=== PATIENT | male | born 1995 | race Caucasian/White ===

== ENCOUNTER 2020-08-22 18:53 | Emergency (ER) | payer SELFPAY ==
[~2020-08-22] VITALS: Ht 177.8 cm; Wt 81.8 kg
[~2020-08-22 18:53] MED LIST: NAPROSYN500 MG OR
[2020-08-22] MEDS ORDERED: AMOXICILLIN875 MG PO (19:46)
[2020-08-22 19:55] VITALS: BP 129/64
== END 2020-08-22 19:55 | disposition home or self-care (01) | DRG 153 ==
LOC: ED 18:53
DX: J02.0 Streptococcal pharyngitis (principal); F17.210 Nicotine dependence, cigarettes, uncomplicated

== ENCOUNTER 2020-11-04 09:03 | Emergency (ER) | payer SELFPAY ==
[~2020-11-04] VITALS: Ht 177.8 cm; Wt 85.0 kg
[~2020-11-04 09:03] MED LIST changes: +AMOXICILLIN875 MG PO
[2020-11-04 10:04] LABS: HEMATOCRIT 44.6 % (39.0-50.0); HEMOGLOBIN 14.3 g/dl (14.0-18.0); IMMATURE GRANULOCYTES 0.3 % (0.0-5.0); MEAN CELL VOLUME 90.3 fL CALC (80.0-100.0); MEAN CORPUSCULAR HGB 28.9 pG CALC (26.0-32.0); MEAN CORPUSCULAR HGB CONC 32.1 g/dL CAL (32.0-36.0); NEUT# 10.08 thou/uL (1.82-7.42); RED BLOOD COUNT 4.94 mill/uL (4.70-6.10); RED CELL DISTRI WIDTH 12.7 % (11.5-15.5)
[2020-11-04 10:23] LABS: ALBUMIN 4.4 g/dL (3.2-5.0); ALKALINE PHOSPHATASE 84 u/l (38-126); ANION GAP 12 (6-22 (CALC)); BILIRUBIN, TOTAL 0.4 mg/dL (0.0-1.4); BUN 10 mg/dL (9-20); BUN/CREATININE RATIO 13 (12-20 (CALC)); CARBON DIOXIDE 27 mmol/l (22-30); CHLORIDE 102 mmol/l (95-108); CREATININE 0.8 mg/dL (0.7-1.3); GFR > 60 ML/MIN (>=60 (CALC)); GFR FOR AFR.AMER. > 60 ML/MIN (>=60 (CALC)); POTASSIUM 4.2 mmol/l (3.5-5.1); SGOT/AST 24 u/l (17-59); SODIUM 137 mmol/l (137-146); TOTAL PROTEIN 7.5 g/dL (6.3-8.2)
[2020-11-04 12:10] VITALS: BP 118/58
== END 2020-11-04 12:10 | disposition left against medical advice (07) | DRG 603 ==
LOC: ED 09:03
DX: L03.012 Cellulitis of left finger (principal); F17.210 Nicotine dependence, cigarettes, uncomplicated

== ENCOUNTER 2021-10-22 06:56 | Emergency (ER) | payer OTHER ==
[~2021-10-22] VITALS: Ht 177.8 cm; Wt 72.7 kg
[2021-10-22] MEDS ORDERED: KEFLEX500 MG PO (08:44)
[2021-10-22 08:57] VITALS: BP 131/74
== END 2021-10-22 09:00 | DRG 605 ==
LOC: ED 06:56
PROC: 0HQ1XZZ Repair Face Skin, External Approach (ICD-10-PCS; principal; 2021-10-22)
DX: S01.81XA Laceration without foreign body of other part of head, initial encounter (principal); Y04.2XXA Assault by strike against or bumped into by another person, initial encounter; Y92.149 Unspecified place in prison as the place of occurrence of the external cause

== ENCOUNTER 2022-01-16 00:02 | Emergency (ER) | payer SELFPAY ==
[2022-01-15 23:21] VITALS: BP 128/96
[2022-01-15 23:30] VITALS: BP 134/87
[~2022-01-16] VITALS: Ht 177.8 cm; Wt 77.0 kg
[2022-01-16 00:02] VITALS: BP 141/91
[~2022-01-16 00:02] MED LIST changes: +KEFLEX500 MG PO
[2022-01-16 00:43] LABS: URINE BILIRUBIN - DIPSTICK NEGATIVE (NEGATIVE); URINE BLOOD DIPSTICK TRACE-INTACT (NEGATIVE); URINE COLOR YELLOW; URINE GLUCOSE - DIPSTICK NEGATIVE (NEGATIVE); URINE KETONE NEGATIVE (NEGATIVE); URINE LEUK ESTERASE NEGATIVE (NEGATIVE); URINE PROTEIN - DIPSTICK NEGATIVE (NEG-TRACE); URINE SPECIFIC GRAVITY 1.025; URINE UROBILINOGEN - DIPSTICK 0.2 E.U./dL (0.2)
[2022-01-16 00:47] LABS: URINE NITRITE - DIPSTICK NEGATIVE (Negative)
[2022-01-16 01:03] VITALS: BP 128/96
== END 2022-01-16 01:08 | disposition home or self-care (01) | DRG 696 ==
LOC: ED 00:02
PROVIDERS: Family Medicine
DX: R30.0 Dysuria (principal); R36.9 Urethral discharge, unspecified; F17.200 Nicotine dependence, unspecified, uncomplicated; Z20.2 Contact with and (suspected) exposure to infections with a predominantly sexual mode of transmission

== ENCOUNTER 2023-12-10 18:14 | Emergency (ER) | payer SELFPAY ==
[~2023-12-10] VITALS: Ht 175.3 cm; Wt 79.4 kg
[2023-12-10 20:47] LABS: BASO% 0.2 % (0-3); EOS% 0.7 % (0-8); HEMATOCRIT 38.7 % (39.0-50.0); HEMOGLOBIN 12.8 g/dl (14.0-18.0); IMMATURE GRANULOCYTES 0.1 % (0.0-5.0); LYMPH% 9.7 % (15-41); MEAN CELL VOLUME 86.4 fL CALC (80.0-100.0); MEAN CORPUSCULAR HGB 28.6 pG CALC (26.0-32.0); MEAN CORPUSCULAR HGB CONC 33.1 g/dL CAL (32.0-36.0); NEUT# 12.5 thou/uL (1.82-7.42); NEUT% 76.3 % (42-76); RED BLOOD COUNT 4.48 mill/uL (4.70-6.10); RED CELL DISTRI WIDTH 12.3 % (11.5-15.5)
[2023-12-10] MEDS ORDERED: KEFLEX500 MG PO (21:42)
[2023-12-10] MEDS ORDERED: CEPHALEXIN MONOHYDRATE 500 MG/CAP PO ONE (21:45)
[2023-12-10] MEDS ORDERED: MUPIROCIN21 TOP (21:46)
[2023-12-10 21:51] VITALS: BP 132/80
== END 2023-12-10 21:58 | disposition home or self-care (01) | DRG 603 ==
LOC: ED 18:14
PROVIDERS: Family Medicine
DX: L03.115 Cellulitis of right lower limb (principal); F17.210 Nicotine dependence, cigarettes, uncomplicated; Z20.822 Contact with and (suspected) exposure to COVID-19